=== PATIENT | female | born 1945 | race Caucasian/White ===

== ENCOUNTER 2023-08-09 11:33 | Emergency (ER) | payer MEDICARE, OTHER, SELFPAY ==
[2023-08-09 11:37] VITALS: BP 117/59
--- NOTE | 2023-08-09 12:13 | ED.GENMED ---
History of Present Illness
<Asiya Shea PA-C - Last Filed: 08/09/23 13:10>
General
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
Source: patient and records
Exam Limitations: none
Time Seen by Provider: 08/09/23 12:06
Nursing documentation reviewed up to this point in time: agreed with
Travel History
Have you had any contact with someone who has COVID-19?: No
Do you have any symptoms of coronavirus? Fever > 100 degrees, chills, cough, shortness of breath, sore throat, loss of taste or smell, muscle aches, or headache?: No
History of Present Illness
History of Present Illness:
78 y/o female with a PMH of afib, Alzheimer's dementia, hypertension is presenting emergency department today with concerns of a cyst in her groin. Patient is here in emergency department present with her reports that his daughter was
changing her depends diaper last night when she noticed that she had a cyst like mass on her groin. Has been unknown how long this has been here. Has been reports that daughter has stated that she has noticed her mom shimmy in her chair a lot but
never complained to her pain. Patient is extremely hard of hearing and is difficult to get history, but when asking about her cyst, she denies any pain, any knowledge of the mass. Patient Nuys any dysuria. Patient Nuys any abdominal pain.
denies any nausea or vomiting, fevers or chills.
Past History
<Asiya Shea PA-C - Last Filed: 08/09/23 13:10>
Past History
ED Past Medical History: HTN
ED Past Surgical History: None
Social History
Tobacco: Non-smoker
Alcohol: Occasional (Beer)
Personal:
Living: with family
Review of Systems
<Asiya Shea PA-C - Last Filed: 08/09/23 13:10>
Review of Systems
All Other Systems: ROS reviewed and negative except as documented in HPI and ROS
Phy Exam
<Asiya Shea PA-C - Last Filed: 08/09/23 13:10>
Physical Exam
Physical Exam:
Vitals: Patient's vital signs are stable
General: Patient is well-appearing and in no acute distress
Skin: Warm and dry, no rashes or lesions
Head: Normocephalic, atraumatic
Eyes: Sclera nonicteric
Cardiac: Regular rate
Pulm: Normal respiratory effort
Abdomen: No abdominal tenderness
Genitourinary: 2 small pustules seen on the pubic mound. Uterine prolapse seen at the vaginal introitus. No signs of infection.
Course
<Asiya Shea PA-C - Last Filed: 08/09/23 13:10>
Vital Signs
Initial and Last Documented VS:
Initial Vital Signs
Temp Pulse Resp BP Pulse Ox
97.3 F 92 20 117/59 96
08/09/23 11:37 08/09/23 11:37 08/09/23 11:37 08/09/23 11:37 08/09/23 11:37
Last Documented Vital Signs
Temp Pulse Resp BP Pulse Ox
97.3 F 92 20 117/59 96
08/09/23 11:37 08/09/23 11:37 08/09/23 11:37 08/09/23 11:37 08/09/23 11:37
<Pierce Dorantes DO - Last Filed: 08/09/23 12:46>
Vital Signs
Initial and Last Documented VS:
Initial Vital Signs
Temp Pulse Resp BP Pulse Ox
97.3 F 92 20 117/59 96
08/09/23 11:37 08/09/23 11:37 08/09/23 11:37 08/09/23 11:37 08/09/23 11:37
Last Documented Vital Signs
Temp Pulse Resp BP Pulse Ox
97.3 F 92 20 117/59 96
08/09/23 11:37 08/09/23 11:37 08/09/23 11:37 08/09/23 11:37 08/09/23 11:37
<Asiya Shea PA-C - Last Filed: 08/09/23 13:10>
MDM/Problems Addressed
Differential Diagnosis Includes:
Differentials include abscess, Bartholin's gland cyst, cystocele, rectocele, uterine prolapse
MDM/Problems Addressed:
Vaginal mass/cyst
Chronic conditions affecting care: Other (Alzheimer's, hearing loss, hypertension, A-fib)
Acute Exacerbation and/or Progression of Chronic Illness: Other (Alzheimer's dementia, hearing loss)
<Asiya Shea PA-C - Last Filed: 08/09/23 13:10>
*Pulse Oximetry
Patient hypoxic: no
*Critical Care Note
Total Time (30-74mins, 75-104mins- exclusive of procedures): Not Applicable
Data Reviewed
Review of Other/Old Records Reveals: Records (Reviewed previous records from ER physician documentation from 12/02/2022)
Source: patient and records
<BING Howard Last Filed: 08/09/23 13:10>
Patient Management
Escalation/DeEscalation of care consider admission/obs:
78 y/o female with a PMH of afib, Alzheimer's dementia, hypertension is presenting emergency department today with concerns of a cyst in her groin. Patient has severe dementia and extreme hearing loss, so history from her is limited, however she
does deny any vaginal pain, abdominal pain. Has been denies any nausea, vomiting, fevers. Her physical exam consistent with uterine prolapse. Uterine prolapse was reduced, patient medically stable for discharge. We will give patient number for
gynecologic follow-up.
ED Attending Note
<Asiya Shea PA-C - Last Filed: 08/09/23 13:10>
-
Portions of this chart may have been created with voice recognition software.� Occasional wrong word or��sound alike� substitutions may have occurred due to the inherent limitations of voice recognition software.
<Pierce Dorantes DO - Last Filed: 08/09/23 12:46>
ED Attending Note
Patient seen and examined by attending physician: Yes
I performed the substantive portion of visit, reviewed & personally made and approve the management plan that is documented in note by myself or ADDISON.: Yes
ED Attending Note:
I have reviewed Asiya's note and make the following notations.
78-year-old female brought to the emerged for evaluation of abnormal structure noted in the vaginal area.
Physical exam reveals a prolapsed uterus. Manually reduced. Recommend PCTS follow-up for potential pessary.
Discharge Plan
Departure
Patient Disposition: Home (Routine Discharge)
Date of Disposition: 08/09/23
Time of Disposition: 12:43
Patient with high blood pressure during this ER visit?: No
Condition: Good
Discharge Problem:
Uterine prolapse
Instructions: Pelvic organ prolapse, BLOOD PRESSURE
Referrals:
Christin Obrien DO [Active] - Call in 1-3 days for appt
Activity Restrictions/Additional Instructions:
Please call the attached [facility] [employer]'s number for an appointment for follow up. You may need pessary placement for this issue.
PLEASE RETURN TO THE EMERGENCY DEPARTMENT SHOULD YOU EXPERIENCE CHEST PAIN, SHORTNESS OF BREATH, ABDOMINAL PAIN, FEVERS OR CHILLS, BURNING WITH URINATION, OR OTHER CONCERNING SIGNS OR SYMPTOMS.
Interventions
Interventions:
*ED COVID-19 Vaccine History Last Done: 08/09/23 11:37
Discharge Date and Time
Print Language: ROMANIAN
[2023-08-09 13:28] VITALS: BP 129/74
== END 2023-08-09 13:34 | disposition home or self-care (01) ==
LOC: EMR 11:33
PROVIDERS: EMERGENCY PHYSICIAN Emergency Medicine
DX: N81.4 Uterovaginal prolapse, unspecified (principal); I10 Essential (primary) hypertension; I48.91 Unspecified atrial fibrillation; F02.80 Dementia in other diseases classified elsewhere, unspecified severity, without behavioral disturbance, psychotic disturbance, mood disturbance, and anxiety; G30.9 Alzheimer's disease, unspecified
CPT/HCPCS: 99282

== ENCOUNTER → 2023-10-06 08:00 | Outpatient (REF) | payer MEDICARE, OTHER, SELFPAY ==
[2023-10-06 08:43] LABS: Hematocrit 37.4 % (37.0-47.0); Mean Corp Hgb Conc. 34.8 g/dL (33.0-37.0); Mean Corpuscular Hgb 29.3 pg (27.0-31.0); Mean Corpuscular Volume 84.2 fL (81.0-99.0); Mean Platelet Volume 8.8 fL (7.4-10.4); Platelet Count 421 10^3/uL (130-400); Red Blood Cell Count 4.44 10^6/uL (4.20-5.40); Red Cell Dist. Width 14.2 % (11.5-14.5); White Blood Cell Count 8.3 10^3/uL (4.8-10.8)
[2023-10-06 09:52] VITALS: BMI 25.7
[2023-10-06 09:53] LABS: Blood Urea Nitrogen 15 mg/dl (7-17); Calcium 9.6 mg/dl (8.4-10.2); Carbon Dioxide 24 mmol/L (22-30); Chloride 99 mmol/L (98-107); Glucose 93 mg/dl (70-99); Potassium 4.7 mmol/L (3.5-5.1); Sodium 132 mmol/L (135-145); eGFR > 60.00
== END ==
LOC: SDSPAT 08:00
PROVIDERS: ATTENDING PHYSICIAN Obstetrics & Gynecology
DX: Z01.818 Encounter for other preprocedural examination (principal)
CPT/HCPCS: 36415; 80048; 85027; 86850; 86900; 86901; 93005

== ENCOUNTER 2023-10-16 06:22 | Day surgery (SDC) | payer MEDICARE, OTHER, SELFPAY ==
[2023-10-06 14:25] VITALS: BMI 25.7
--- NOTE | 2023-10-12 09:18 | CM ---
Patient is scheduled for surgery with Dr. Pinon on 10/16/23. Spoke with patient's prior to surgery via telephone to complete case management assessment and assess for discharge planning needs. He reports that he and patient live in a one
story home. There are two steps to enter. states that patient has dementia. He provides assistance with showers and occasionally with dressing. She is able to ambulate and occasionally uses a rollator. She is incontinent at night. She has
never had VN services. She was in [facility] for almost a year while was in the process of moving. Their daughter, son-in-law and grandchildren live down the street and come over daily. She has a prescription plan and uses [facility] on [facility] in [place].
PCP is Emilee Franco.
Discussed discharge plans. states that the plan is for patient to return home at discharge. He will be home and can continue to provide support to patient along with his daughter and her family. He has no discharge planning concerns at this
time. Discussed possible need for VN services. He states that patient doesn't do well with people she doesn't know so he does not feel that these services would be beneficial.
--- NOTE | 2023-10-12 12:36 | PTCARENOTE ---
Abn ECG, Dr. Medrano notified, Cardiac Clearance not needed.
[2023-10-16] VITALS (12 sets, daily range): BP systolic 90–114; BP diastolic 58–84; BMI 25.7
[2023-10-16] MEDS: NORMOSOL-R 1000 IV (08:34)
[2023-10-16] MEDS: Pyridium 200 MG PO (08:34)
== END 2023-10-16 16:45 | disposition home or self-care (01) ==
LOC: SDS 06:22
PROVIDERS: ATTENDING PHYSICIAN Obstetrics & Gynecology
DX: N81.3 Complete uterovaginal prolapse (principal); N39.3 Stress incontinence (female) (male)
CPT/HCPCS: 57120; 57250; 86900; 86901

== ENCOUNTER 2025-03-09 18:28 | Inpatient (IN) | payer MEDICARE, OTHER, SELFPAY ==
[2025-03-09] VITALS (7 sets, daily range): BP systolic 93–111; BP diastolic 50–90; BMI 22.3
[2025-03-09 14:36] LABS: AST (SGOT) 184 U/L (14-36); Albumin 3.8 g/dl (3.5-5.0); Alkaline Phosphatase 77 U/L (38-126); Blood Urea Nitrogen 47 mg/dl (7-17); Calcium 8.5 mg/dl (8.4-10.2); Carbon Dioxide 22 mmol/L (22-30); Chloride 92 mmol/L (98-107); Glucose 169 mg/dl (70-99); Potassium 4.5 mmol/L (3.5-5.1); Sodium 127 mmol/L (135-145); Total Protein 6.8 g/dl (6.3-8.2); eGFR 30.70
[2025-03-09 14:37] LABS: Hematocrit 37.2 % (37.0-47.0); Hemoglobin 13.2 g/dL (12.0-16.0); Mean Corp Hgb Conc. 35.5 g/dL (33.0-37.0); Mean Corpuscular Volume 87.3 fL (81.0-99.0); Platelet Count 316 10^3/uL (130-400); Red Cell Dist. Width 13.4 % (11.5-14.5)
[2025-03-09 14:45] LABS: ALT (SGPT) 93 U/L (0-35)
[2025-03-09 14:50] LABS: Nucleated Red Blood Cells % 0 %
[2025-03-09 14:51] LABS: Hypochromasia 1+; Normal RBC Morphology No; Polychromasia 1+
[2025-03-09 14:52] LABS: Acanthocytes 2+
--- NOTE | 2025-03-09 14:57 | ED.GENMED ---
History of Present Illness
General
Chief Complaint: Change in Mental Status
Source: patient and family
Exam Limitations: altered mental status and dementia
Time Seen by Provider: 03/09/25 14:07
History of Present Illness
History of Present Illness:
79-year-old female advanced dementia subacute decline in function over the past few days not eating or drinking looking to the side question of fever, patient apparently does not have an advance directive family is not sure what they would want to
do at the end stage of her life, nor have they ever discussed
Patient has hypertension A-fib currently not anticoagulated
Past History
Past History
ED Past Medical History: HTN and Other (Dementia)
ED Past Surgical History: None
Social History
Tobacco: Non-smoker
Alcohol: Occasional (Beer)
Personal:
Living: with family
Review of Systems
Review of Systems
Unable to obtain full review of systems at this time due to: dementia
All Other Systems: Not applicable
Phy Exam
Physical Exam
Physical Exam:
Physical Exam
General: 79 female obtunded looking to the side strong smell of urine
Neck: Lips are dry pupils millimeters OU
Heart: s1/s2 regular rate and rhythm, no murmur. equal radial pulses.
Lungs: Tachycardia
Abdomen: Not
Neuro: Localizes to painful stim
Skin: no rash
Psychiatric: Unable to
Extremities: No edema
Course
Orders/Labs/Results
Orders:
Orders
03/09/25 14:12
CT Head W/o Iv Contrast Urgent
Comment:
Reason For Exam: decrease LOC
03/09/25 14:13
Complete Blood Count/With Diff Urgent
Comprehensive Metabolic Panel Urgent
03/09/25 14:28
Rectal Temp- Treatment ONCE
03/09/25 14:29
Electrocardiogram (*1) Urgent
Reason for Study: Shortness of Breath
EKG- Treatment ONCE
Straight cath- Treatment ONCE
CR Chest Portable - 1 View Urgent
Comment:
Reason For Exam: coma
Reason Study Needs to be Portable: Unable to Transport
03/09/25 15:03
0.9% Sodium Chloride 1000 ml [Nss] 2,000 ml IV BOLUS
CefTRIAXone [Rocephin] 1,000 mg IV NOW STA
03/09/25 16:08
Sterile Water [Sterile Water For Injection] 10 ml .ROUTE .[facility]
03/09/25 16:14
Urinalysis Reflex To Culture Urgent
Date Specimen was Collected: 03/09/25
Time Specimen was Collected: 15:05
Urine Microscopic Reflex Cult Urgent
Blood Culture Q30M
JOSIE Source: Blood/Venous
Specimen Description:
Blood Culture Q30M
JOSIE Source: Blood/Venous
Specimen Description:
Urine Culture Urgent
JOSIE Source: U
Specimen Description:
Obtained by: Random
Date Specimen was Collected: 03/09/25
Time Specimen was Collected: 15:05
03/09/25 17:22
COVID-19 Antigen Stat
Source: Nasal Swab
Lactate Level [Lactic Acid] Urgent
Influenza A+B Rapid Molecular Stat
JOSIE Source: Nasal Swab
Specimen Description:
Abnormal Lab Results
03/09/25 03/09/25
14:13 16:14
WBC 25.4 H 10^3/uL
(4.8-10.8)
Abs Immat Gran (auto) 0.4 H 10^3/uL
(0-0.05)
Absolute Neuts (auto) 21.8 H 10^3/uL
(1.4-6.5)
Absolute Monos (auto) 1.7 H 10^3/uL
(0.1-0.6)
Immature Gran % 1.5 H %
(0-0.5)
Neutrophils % 85.8 H %
(42.2-75.2)
Lymphocytes % 5.6 L %
(20.5-51.1)
Sodium 127 L mmol/L
(135-145)
Chloride 92 L mmol/L
(98-107)
BUN 47 H mg/dl
(7-17)
Creatinine 1.7 H mg/dL
(0.6-1.0)
Glucose 169 H mg/dl
(70-99)
Total Bilirubin 1.6 H mg/dl
(0.2-1.3)
AST 184 H U/L
(14-36)
ALT 93 H U/L
(0-35)
Ur Occult Blood Reflex 4+ A
(Negative)
Leukocyte Esterase Rfl 1+ A
(Negative)
Urine Bacteria (Reflex) Moderate A
(Negative)
Urine Albumin (Reflex) 3+ A
(Neg - Trace)
03/09/25 14:13
03/09/25 14:13
Vital Signs
Initial and Last Documented VS:
Initial Vital Signs
Pulse Resp BP
42 16 111/83
03/09/25 13:51 03/09/25 13:51 03/09/25 13:51
Last Documented Vital Signs
Temp Pulse Resp BP Pulse Ox
99.1 F 88 19 100/56 97
03/09/25 16:10 03/09/25 16:31 03/09/25 16:03 03/09/25 16:03 03/09/25 16:31
MDM/Problems Addressed
Differential Diagnosis Includes:
Stroke UTI sepsis electrolyte abnormality aspiration
*Pulse Oximetry
Oxygen Mode of Delivery: Room air
Patient hypoxic: no
*Critical Care Note
Total Time (30-74mins, 75-104mins- exclusive of procedures): 14
ED Attending Note
-
Portions of this chart may have been created with voice recognition software.� Occasional wrong word or��sound alike� substitutions may have occurred due to the inherent limitations of voice recognition software.
Discharge Plan
Departure
Patient Disposition: Admit
Date of Disposition: 03/09/25
Time of Disposition: 16:30
Admit to: Med/Surg
Presentation/result/management discussed w/ accepting MD/DO: Hospitalist
Patient with high blood pressure during this ER visit?: No
Condition: Fair
Discharge Problem:
Delirium
Prescriptions:
No Action
risperidone 0.25 mg Tablet
0.25 mg PO BID
amlodipine 10 mg Tablet
10 mg PO DAILY
metoprolol succinate 25 mg Tablet Extended Release 24 Hr
25 mg PO DAILY
losartan 100 mg Tablet
100 mg PO DAILY
Referrals:
Emilee Arias DO [Family Provider, Internal Medicine]
Interventions
Interventions:
*Risk Screen - Suicide Last Done: 03/09/25 13:57
*Neglect/Abuse Screening Last Done: 03/09/25 13:57
ED- Pulmonary Assessment Last Done: 03/09/25 16:40
ED- Neurological Assessment Last Done: 03/09/25 14:25
ED- Cardiac Assessment Last Done: 03/09/25 16:40
ED Swallowing Screen Last Done: 03/09/25 16:41
Discharge Date and Time
Print Language: PUERTO RICAN
[2025-03-09] MEDS: NSS 2000 IV (16:09)
[2025-03-09] MEDS: ROCEPHIN 1000 MG IV (16:10)
--- NOTE | 2025-03-09 16:24 | HPS.HSE ---
Addendum entered and electronically signed by Peter Del Valle MD 03/09/25 19:57:
This is an addendum to the H&P written by Kiko Duggan on 03/09/2025. �Patient seen and examined independently with resident.
79-year-old female past medical history of hypertension, paroxysmal atrial fibrillation, Alzheimer's dementia, chronic urinary incontinence presenting with altered mental status, somnolence for few days and gait dysfunction for past week. �She has
been more congested with her breathing. �No urinary symptoms that are new. �No vomiting or diarrhea. �No cough.
Vital signs show mild tachycardia up to 109. �Patient requiring 2 L oxygen.
Labs shows sodium 127 from 132. �Creatinine 1.7. �Mild transaminitis. �White cell count 25. �Urinalysis unremarkable.
Chest x-ray shows no acute process. �CT head shows no acute abnormality, prominence of ventricles, possible indicating NPH.
Patient with acute metabolic encephalopathy/acute hypoxemic respiratory insufficiency possible URI versus UTI versus rule out acute cholecystitis. �SHASHANK. �Check COVID and flu. �Urine culture pending. �IV fluids. �Empiric ceftriaxone. �Check liver
ultrasound.
Original Note:
Family Physician
-
Family Physician: Emilee Arias
Chief Complaint
-
Altered mental status
History of Present Illness
79-year-old female with history of Alzheimer's dementia, hypertension, A-fib brought to the ER by her spouse for evaluation of altered mental status. reports that appeared weak from the past 1 week, was not able to use her walker and he got
her a wheelchair 3 days ago. Patient was so weak that she slid off her couch getting up to the walker, and hit her head. She has not been eating well for the past 3 days, no not adequately hydrated as well. She also appeared a little bit more
confused than before. No fever/chills, cough, chest pain, SOB, abdominal pain, diarrhea, hematuria. Patient was not sick in the recent past.
ED course-pulse 109, BP 111/83, RR 16. Afebrile.
CBC with elevated white count 25.4, sodium 127, BUNs/creatinine�47/1.7, glucose 169, T. bili�1.6, AST/ALT�180/93
Urinalysis with evidence of UTI
CT head�no acute intracranial abnormalities. Questionable NPH.
Chest x-ray�no evidence of pneumonia.
EKG with A-fib
Medical History
Past Medical History
Past Medical History: Reports Other (Hypertension, atrial fibrillation, Alzheimer's dementia)
Past Surgical History: Reports Gynocological
Social History
Tobacco: Non-smoker
Alcohol: None
Drug: None
Personal:
Living: With Family
Family History
Family History: Not pertinent
Allergies / Home Medications
Allergies reflects when Allergies were last updated in [employer].
Home Medications with original date entered in [employer]
Allergy/Medication List:
Allergies
Allergy/AdvReac Type Severity Reaction Status Date / Time
hydrochlorothiazide Allergy Unknown Verified 10/16/23 08:03
lisinopril AdvReac COUGH Verified 10/16/23 08:03
Home Medications
amlodipine 10 mg tablet 10 mg PO DAILY 10/11/23
losartan 100 mg tablet 100 mg PO DAILY 10/11/23
metoprolol succinate 25 mg tablet,extended release 24 hr 25 mg PO DAILY 10/11/23
risperidone 0.25 mg tablet 0.25 mg PO BID 10/11/23
Review of Systems
-
A 12 point ROS was completed and negative except as noted: Yes
Physical Exam
Vital Signs
Vital Signs
Temp Pulse Resp BP
99.1 F 109 30 111/83
03/09/25 16:10 03/09/25 14:06 03/09/25 14:06 03/09/25 13:51
Physical Exam
General: Appears Chronically Ill; No Conversant
HEENT: NormoCephalic and Atraumatic
Respiratory: Clear
Cardiac: S1/S2 and Irregular Rhythm
GI: Soft, Non Tender, Non Distended and Normal Bowel Sounds
Skin: Warm and Dry
Neuro: Awake and Alert; No Oriented or AO x 3
Psych: Apparent Dementia
Laboratory Results
-
03/09/25 14:13
03/09/25 14:13
Laboratory Results
Total Bilirubin 1.6 mg/dl (0.2-1.3) H 03/09/25 14:13
AST 184 U/L (14-36) H 03/09/25 14:13
ALT 93 U/L (0-35) H 03/09/25 14:13
Alkaline Phosphatase 77 U/L (38-126) 03/09/25 14:13
Impression/Plan
-
IMPRESSION:
79-year-old female with history of Alzheimer's dementia, hypertension, atrial fibrillation presenting for evaluation of altered mental status
PLAN:
#Acute metabolic encephalopathy
Likely from UTI versus URI versus electrolyte imbalance
Elevated white count 25.4, patient afebrile.
Will check COVID/flu
Patient on 2 L nasal cannula, chest x-ray with no evidence of pneumonia
Check ultrasound abdomen
Will start Rocephin
Follow urine culture
Follow blood cultures
Check lactate
#SHASHANK
Likely prerenal from dehydration
No prior history of CKD
IV fluids
Monitor BMP
#Transaminitis
AST/ALT�184/93
Will check ultrasound abdomen to rule out cholecystitis
Otherwise likely due to dehydration
Monitor LFTs
#Essential hypertension
Blood pressure very soft
Hold amlodipine, losartan
#Atrial fibrillation
Patient not on anticoagulants
Continue metoprolol, hold for low blood pressure
#Alzheimer's dementia
Continue risperidone
DVT prophylaxis�heparin subcu
Diet�low-sodium
Full code
[2025-03-09 16:25] LABS: Urine Character Slightly Cloudy (Clear)
[2025-03-09 16:31] LABS: Urine Red Blood Cell 0-2 /HPF (0-2)
[2025-03-09 19:41] LABS: COVID-19 Antigen Negative (Negative)
[2025-03-09] MEDS: NSS 1000 IV (20:31)
[2025-03-10] MEDS: RISPERDAL PO ×3 (00:08→07:11)
[2025-03-10] MEDS: HEPARIN 5000 UNITS SC ×4 (00:32→23:37)
[2025-03-10 03:07] VITALS: BP 105/50
[2025-03-10] MEDS: NSS 1000 IV ×3 (04:20→21:25)
[2025-03-10 06:57] LABS: Hematocrit 29.5 % (37.0-47.0); Hemoglobin 10.0 g/dL (12.0-16.0); Mean Corp Hgb Conc. 33.9 g/dL (33.0-37.0); Mean Corpuscular Volume 92.2 fL (81.0-99.0); Nucleated Red Blood Cells % 0 %; Platelet Count 254 10^3/uL (130-400); Red Cell Dist. Width 13.2 % (11.5-14.5)
[2025-03-10 07:15] VITALS: BP 115/82
[2025-03-10 07:33] LABS: ALT (SGPT) 73 U/L (0-35); AST (SGOT) 105 U/L (14-36); Albumin 2.7 g/dl (3.5-5.0); Alkaline Phosphatase 64 U/L (38-126); Blood Urea Nitrogen 41 mg/dl (7-17); Calcium 7.6 mg/dl (8.4-10.2); Carbon Dioxide 23 mmol/L (22-30); Chloride 104 mmol/L (98-107); Estimated Creatinine Clearance 41 ml/min; Glucose 77 mg/dl (70-99); Potassium 3.3 mmol/L (3.5-5.1); Sodium 130 mmol/L (135-145); Total Protein 5.3 g/dl (6.3-8.2); eGFR 58.02
--- NOTE | 2025-03-10 09:08 | W.PN.HOSP.TC ---
Addendum entered and electronically signed by Elisha Gunter MD 03/10/25 17:47:
I saw and evaluated the patient independently. I reviewed and discussed the resident�s note and agree with findings and plan as documented by Dr. Reddy.
GENERAL: well developed, well nourished, female in no apparent distress--significant dementia
HEENT: NC/AT--O2 NC
HEART: regular rate and rhythm, +S1, +S2
LUNGS : clear to auscultation bilaterally anteriorly
ABDOM: soft, nontender, nondistended, + bowel sounds
EXT: no cyanosis, clubbing, or edema
NEUROLOGIC: dementia
Altered mental status presumed secondary to urinary tract infection on Alzheimer's dementia--blood culture neg--urine culture pending--cont rocephin for now--WBC improving--PT/OT/speech--IVF and IV meds if not taking PO
hyponatremia/hypokalemia --replete
SHASHANK likely prerenal from dehydration-- improved from 1.7 to 1.0
Transaminitis--03/09-AST 105 high ALT 73 high, total protein low 5.3, albumin 2.7 low--US shows Simple left renal cyst. Gallbladder not visualized most likely, either markedly contracted or surgically absent. No findings to suggest biliary tract
dilatation.
Persistent A-fib--Currently heparin subcutaneous yesterday administered but not on anticoagulants--presumably due to dementia and fall risk? --Continue Lopressor IV 5 mg 6 hourly, stop if HR is less than 70.
Alzheimer's dementia continue risperidone
code status--Full code
DVT proph-- heparin SC
Original Note:
Today's Communication/Plan
-
Switched metoprolol to IV Lopressor
Continue ceftriaxone
Check potassium
Risperidone 0.25 mg continue
Check lactate level
Speech therapy consulted
Monitor vitals
Assessment / Plan
Assessment / Plan
79-year-old female with a history of Alzheimer's dementia on risperidone, hypertension, A-fib on no anticoagulants, hypertension presented with dementia
# Altered mental status secondary to urinary tract infection/ Alzheimer's dementia:
vitals: 105/50--115/82, LA 120, RR 18, blood pressure 115/ 82, currently receiving 2 L of oxygen nasal cannula.
WBC 25.4--15.6 downtrending, Hb 13.2--10.0,
Sodium 130 low, potassium 3.3, 40 mEq potassium chloride per oral placed an order however the patient is not willing to take any oral medications so switched to potassium riders.
bun 41 high, creatinine 1.7--1 (improving may be due to dehydration currently on IV NS 1 L 120 mL/h fluids )
Urine culture, blood culture results are pending, flu test negative, lactate check ,, A-fib
EKG: A-fib, heart rate 97 bpm, QT 462,
Check orthostatic vitals,
Continue ceftriaxone once a day
Continue i v NS fluids
hold oral medications.
iv lopressor 5 mg q6-- hr less than 70,
Replenished Kcl rider 40 mEq iv.
# SHASHANK likely prerenal from dehydration.
# Transaminitis:
03/09-AST 105 high ALT 73 high, total protein low 5.3, albumin 2.7 low
Ultrasound abdomen:
Simple left renal cyst. Gallbladder not visualized most likely, either markedly contracted or surgically absent. No findings to suggest biliary tract dilatation.
Additional small complex left renal cysts with at least some internal septations, indeterminate. Suggest elective Abdomen CT without and with intravenous contrast for more complete evaluation.
# Persistent A-fib:
Currently heparin subcutaneous yesterday administered but not on anticoagulants.
Continue Lopressor IV 5 mg 6 hourly, stop if HR is less than 70.
# Alzheimer's dementia continue risperidone
# st/pt/ot consulted
Diet low-sodium as tolerated
Full code
DVT prophylaxis heparin subcu
Anticipated Discharge: > 48 hours
Subjective/Interval History
-
Date of Service: March 10, 2025
Overnight patient had urinary incontinent at bed, she was refusing to eat today breakfast spitting it out, normal saline currently she is receiving.
When I was at rounds with Dr. Gunter: Discussed with her who is at the bedside. He mentioned' she was eating by herself at home. According to him today she had milk at morning, but she has chronic speech problem. Her dementia has
worsening.' Discussed regards her disposition and he would like to take her to home with home care.
Objective Data
-
Labs:
Laboratory Results
03/10/25
05:53
WBC 15.6 H
Hgb 10.0 L D
Hct 29.5 L
Plt Count 254
Sodium 130 L
Potassium 3.3 L D
Chloride 104
Carbon Dioxide 23
BUN 41 H
Creatinine 1.0
Glucose 77
Calcium 7.6 L
Total Bilirubin 0.8
AST 105 H
ALT 73 H
Alkaline Phosphatase 64
Vital Signs:
Vital Signs
Temp Pulse Resp BP Pulse Ox
98.3 F 120 18 115/82 92
03/10/25 07:15 03/10/25 07:15 03/10/25 07:15 03/10/25 07:15 03/10/25 07:15
I&O
03/09/25 03/10/25 03/11/25
06:59 06:59 06:59
Intake Total 2400 / 2400
Balance 2400 / 2400
Review of Systems
-
History Source: Patient
All other systems: Reviewed and negative
Physical Exam
-
General: Well Developed and Well Nourished
Respiratory: Clear to Auscultation
Cardiac: Regular Rhythm and S1/S2
GI: Soft, Nontender and Nondistended
Genito-urinary: No Costovertebral Tender
Musculoskeletal: No Edema
Skin: Other (Bruises present at left foot.)
Neuro: Awake and Other (Not oriented to time, place, person)
Hematologic / Lymphatic: No Lymphadenopathy
Psych: Confused
[2025-03-10 11:25] VITALS: BP 91/57
[2025-03-10] MEDS: STERILE WATER FOR INJECTION 10 ML IV (12:21)
[2025-03-10] MEDS: KCL 270 MEQ IV (12:23)
[2025-03-10] MEDS: ROCEPHIN 1000 MG IV (12:23)
[2025-03-10] MEDS: RISPERDAL 0.25 MG PO ×2 (12:53→20:23)
--- NOTE | 2025-03-10 14:09 | CM ---
Patient seen at bedside with patient and physicians on . Patient stated that he was primary caregiver for for last 2 years. Patient has walker, wheelchair and chair lift at home. Patient home is one story.
[2025-03-10 15:35] VITALS: BP 98/66
--- NOTE | 2025-03-10 16:31 | PTOTSP ---
Speech Therapy Evaluation:
Pt with acute (HIEN) and chronic (Alzheimers Dementia) risk factors of dysphagia. Bedside assessment limited 2/2 nonfunctional communication and no command following. Pt accepted sparing PO trials with max verbal cueing. No overt s/sx of aspiration
and CXR without PNA. Risk of aspiration elevated during periods of confusion.
Recommend:
1. Regular solids and thin liquids with softer selections
2. Meds crushed vs whole in puree
3. 1:1 assistance and supervision with intake
4. Strict aspiration precaution
5. OUTSIDE [employer] SALES [employer]IST to follow to monitor tolerance of diet
[2025-03-10] MEDS: LOPRESSOR IV (17:18)
[2025-03-10] MEDS: LOPRESSOR 5 MG IV ×2 (17:45→23:37)
[2025-03-10] MEDS: NSS IV ×2 (19:03→20:21)
[2025-03-10 19:37] VITALS: BP 119/71
[2025-03-10 23:30] VITALS: BP 123/64
[2025-03-11] MEDS: TYLENOL 650 MG PO (03:04)
[2025-03-11] MEDS: RISPERDAL 0.25 MG PO ×2 (03:05→09:17)
[2025-03-11 03:06] VITALS: BP 112/56
[2025-03-11] MEDS: LOPRESSOR 5 MG IV ×2 (06:22→12:23)
[2025-03-11] MEDS: NSS 1000 IV (06:26)
--- NOTE | 2025-03-11 06:39 | W.PN.HOSP.TC ---
Addendum entered and electronically signed by Elisha Gunter MD 03/11/25 15:51:
I saw and evaluated the patient independently. I reviewed and discussed the resident�s note and agree with findings and plan as documented by Dr. Reddy.
GENERAL: well developed, well nourished, female in no apparent distress--significant dementia
HEENT: NC/AT--off O2 NC
HEART: regular rate and rhythm, +S1, +S2
LUNGS : clear to auscultation bilaterally anteriorly
ABDOM: soft, nontender, nondistended, + bowel sounds
EXT: no cyanosis, clubbing, or edema
NEUROLOGIC: dementia
sepsis with Altered mental status (encephalopathy) due to E. coli urinary tract infection with Alzheimer's dementia--blood culture neg--urine culture positive for E. coli--change rocephin to Cephalexin suspension--WBC improving--PT/OT/speech
hyponatremia/hypokalemia --replete
SHASHANK likely prerenal from dehydration-- improved from 1.7 to 1.0
Transaminitis--03/09-AST 105 high ALT 73 high, total protein low 5.3, albumin 2.7 low--US shows Simple left renal cyst. Gallbladder not visualized most likely, either markedly contracted or surgically absent. No findings to suggest biliary tract
dilatation.
Persistent A-fib--Currently heparin subcutaneous yesterday administered but not on anticoagulants--presumably due to dementia and fall risk? --Continue Lopressor IV 5 mg 6 hourly, stop if HR is less than 70.
Alzheimer's dementia continue risperidone
code status--Full code
DVT proph-- heparin SC
Original Note:
Today's Communication/Plan
-
Afebrile,
Switch to Keflex oral suspension
Discharge today
Will call the patient with urine culture and sensitivity results.
Follow-up with PCP within few weeks of discharge.
Assessment / Plan
Assessment / Plan
79-year-old female with a history of Alzheimer's dementia on risperidone, hypertension, A-fib on no anticoagulants, hypertension presented with dementia
# Altered mental status secondary to urinary tract infection/ Alzheimer's dementia:
vitals: 105/50--115/82, AR 120, RR 18, blood pressure 115/ 82, currently receiving 2 L of oxygen nasal cannula.
Labs: Sodium 130--129, potassium 3.3--3.6, bun 41--25, lactic acid 3.8--0.9,
WBC 15.6--14.5
Hemoglobin 10.0--9.9
COVID, flu test negative
Urine culture= E. coli prelim report.
bun 41 high, creatinine 1.7--1 (improving may be due to dehydration currently on IV NS 1 L 120 mL/h fluids )
Urine culture, blood culture results are pending, flu test negative, lactate check ,, A-fib
EKG: A-fib, heart rate 97 bpm, QT 462,
Check orthostatic vitals,
Switching IV ceftriaxone to oral Keflex- 500 mg in 10 mL suspension twice daily while on discharge today.
Continue oral medications if she tolerates.
Switching iv lopressor 5 mg q6-- hr less than 70 to metoprolol while on discharge.
Switching all her medications to oral.
# SHASHANK likely prerenal from dehydration.
# Transaminitis:
03/09-AST 105 high ALT 73 high, total protein low 5.3, albumin 2.7 low
Ultrasound abdomen:
Simple left renal cyst. Gallbladder not visualized most likely, either markedly contracted or surgically absent. No findings to suggest biliary tract dilatation.
Additional small complex left renal cysts with at least some internal septations, indeterminate. Suggest elective Abdomen CT without and with intravenous contrast for more complete evaluation.
# Persistent A-fib:
Currently heparin subcutaneous yesterday administered but not on anticoagulants.
Continue Lopressor IV 5 mg 6 hourly, stop if HR is less than 70.
# Alzheimer's dementia continue risperidone
# st/pt/ot consulted
Diet low-sodium as tolerated
Full code
DVT prophylaxis heparin subcu
Disposition: Home along with .
# at the bedside explained in details regards to her complicated UTI, and explained regards to complete antibiotic course. He is willing to take her to the home.
Anticipated Discharge: Today
Subjective/Interval History
-
Date of Service: March 11, 2025
History obtained from the night nurse:
Overnight had temp 100.8 F--97.5 around midnight and Tylenol administered. She had 1 incontinence, risperidone she refused to take. She had applesauce for dinner. Currently she is on 2L of oxygen nasal cannula.
She is having had left-sided hip bruises, chronic speech problem.
Objective Data
-
Labs:
Laboratory Results
03/11/25
06:00
WBC Pending
Hgb Pending
Hct Pending
Plt Count Pending
Sodium Pending
Potassium Pending
Chloride Pending
Carbon Dioxide Pending
BUN Pending
Creatinine Pending
Glucose Pending
Calcium Pending
Total Bilirubin Pending
AST Pending
ALT Pending
Alkaline Phosphatase Pending
Vital Signs:
Vital Signs
Temp Pulse Resp BP Pulse Ox
99.2 F 115 18 117/93 99
03/11/25 06:26 03/11/25 06:22 03/11/25 03:06 03/11/25 06:22 03/11/25 03:06
I&O
03/09/25 03/10/25 03/11/25
06:59 06:59 06:59
Intake Total 2400 / 2400 1200 / 1200
Balance 2400 / 2400 1200 / 1200
Review of Systems
-
History Source: Patient
All other systems: Reviewed and negative
Physical Exam
-
General: Appears in Distress and Other (Dysarthria)
HEENT: Other
Respiratory: Clear to Auscultation
Cardiac: Regular Rhythm and S1/S2
GI: Soft, Nontender and Nondistended
Genito-urinary: No Costovertebral Tender
Musculoskeletal: No Clubbing and No Cyanosis
Neuro: Awake and Other (Not oriented to time, place, person)
Psych: Confused
[2025-03-11 07:35] LABS: Hematocrit 29.8 % (37.0-47.0); Hemoglobin 9.9 g/dL (12.0-16.0); Mean Corp Hgb Conc. 33.2 g/dL (33.0-37.0); Mean Corpuscular Volume 90.6 fL (81.0-99.0); Platelet Count 259 10^3/uL (130-400); Red Cell Dist. Width 13.4 % (11.5-14.5)
[2025-03-11 07:37] VITALS: BP 94/54
[2025-03-11 08:12] LABS: ALT (SGPT) 68 U/L (0-35); AST (SGOT) 67 U/L (14-36); Albumin 2.7 g/dl (3.5-5.0); Alkaline Phosphatase 63 U/L (38-126); Blood Urea Nitrogen 25 mg/dl (7-17); Calcium 7.6 mg/dl (8.4-10.2); Carbon Dioxide 21 mmol/L (22-30); Chloride 105 mmol/L (98-107); Estimated Creatinine Clearance 58 ml/min; Glucose 95 mg/dl (70-99); Potassium 3.6 mmol/L (3.5-5.1); Sodium 129 mmol/L (135-145); Total Protein 5.3 g/dl (6.3-8.2); eGFR > 60.00
[2025-03-11] MEDS: HEPARIN 5000 UNITS SC ×2 (09:16→15:17)
[2025-03-11 11:19] VITALS: BP 134/71
[2025-03-11] MEDS: STERILE WATER FOR INJECTION 10 ML IV (12:23)
[2025-03-11] MEDS: ROCEPHIN 1000 MG IV (12:23)
--- NOTE | 2025-03-11 14:30 | CM ---
Patient seen at bedside on with physicians. Patient indicated that he wanted to take patient home and declined ambulance for transport. Patient indicated following his research that [facility] had recommended [facility] and CM updated
liaison. IMM completed and signed form placed on chart. CM will continue to follow for discharge planning needs.
Plan; home with [facility] to follow
--- NOTE | 2025-03-11 14:31 | VNURNOTE ---
Home Health Liaison met with patient and spouse at bedside to discuss [facility] nurse/therapy, visits, schedule and homebound status. Patient confused/dementia. Spouse is agreeable and understands that visits at home will be 2-3 x per week to assess
and teach medical management. Spouse is aware that [facility] will contact them for start of care within a week after discharge from . Provided contact number for [facility]. Sent spouse info on visiting PCPs per his request.
[facility] referral completed in [facility].
[2025-03-11 15:12] VITALS: BP 105/65
[2025-03-11] MEDS: FLUZONE HIGH-DOSE 2025-26 0.5 ML IM (15:18)
--- NOTE | 2025-03-11 18:30 | W.DCSUMMARY ---
Addendum entered and electronically signed by Elisha Gunter MD 03/11/25 19:01:
Read, reviewed, and agree. See same day progress note for additional details. Time spent coordinating care, DC planning, review of DC plan of care with resident, transition of care, review of records in EMR, med rec, consults, notes, d/w
consultants, nursing, family, and CM = 45 minutes.
CLARIFICATION: Discharge diagnosis is actually sepsis with altered mental status (encephalopathy) due to Escherichia coli urinary tract infection with Alzheimer's dementia. After mutual discussion with the patient's , it was felt that the
patient would do better at home rather than stay another night in the hospital. She does much better when he is here with her, including taking her pills and less agitation. The sensitivities are not back yet on the E. coli urine culture, however,
if the antibiotic needs to be changed we will call the patient's and provide a new prescription.
Original Note:
Discharge Summary
Discharge Data
Date of Admission: 03/09/25
Date of Discharge: 03/11/25
Total time spent discharging patient (in min): 45 minutes
-
Pending Results: Yes
Additional Pending Results:
Urine analysis test sensitive results are pending.
Will call the patient once we receive.
Hospital Course
Discharging Physician : Dr. Gunter, Elisha Verdugo MD
Magda Vidal MD
Disposition : Home
Primary care physician : Emilee Rendon,
Principal Discharge diagnosis : Altered mental status due to E. coli urinary tract infection.
Chronic Discharge diagnosis :
# Hyponatremia/hypokalemia--repleted with NaCl NS, KCl repletion.
# SHASHANK likely prerenal from dehydration--improved from 1.7--1.0
# Transaminitis 03/09--AST 105 high, ALT 73 high, total protein low 5.3, albumin 2.7 low--USG showed simple left renal cyst.
# Persistent A-fib: Heparin subcutaneous administered at the time of admission and continued till the hospitalization. However the patient not on anticoagulants while on [id number] presumably due to dementia and fall risk.
# Alzheimer's dementia-continue risperidone.
Hospital Course :
On 02/1670 9-year-old female with history of Alzheimer's dementia, hypertension, A-fib brought to the ER by her spouse for evaluation of altered mental status. reported that she appeared weak from the past 1 week, was not able to use her
walker and he got her ABG 3 days ago. Patient was weak that she slid off her couch and getting up to the walker and hit her head. No concern for fever/chills, cough, chest pain, shortness of breath, abdominal pain, diarrhea, hematuria. Patient
was not sick in the past. Initial workup with WBC 25.4 high, lactate 3.8 high, afebrile, including CT brain showed no acute intracranial abnormalities. Patient was started on [id number] mg IV daily. ST, PT, OT evaluated. Speech evaluation
mentioned she can tolerate liquid as well as soft food diet. While on the course of hospitalization due to her poor intake of oral medications we switched to IV Lopressor 5 mg to maintain her blood pressure. She is stable while at the discharge
and switch to oral medication including ceftriaxone thousand mg into Keflex oral suspension to complete the course for 4 more days. Recommended to follow-up with PCP in a few weeks of discharge.
IMPORTANT:
If your symptoms worsen when you get home, go to the Emergency Room if you cannot reach a doctor, or call 911
code status--Full code
DVT proph-- heparin SC
Important imaging findings :
#On 03/09/2025 CT brain without IV contrast:
No acute intracranial abnormalities.
Findings compatible with diffuse cortical atrophy with nonspecific white matter changes as described above. Please note, prominence of the ventricles are questionably somewhat out of proportion to the cisterns and sulci, cannot exclude a
superimposed component of NPH.
# On 03/09 chest x-ray impression:
No gross acute cardiopulmonary process.
# On 03/09 abdominal ultrasound impression:
Gallbladder not visualized most likely, either markedly contracted or surgically absent. No findings to suggest biliary tract dilatation.
Simple left renal cyst. Additional small complex left renal cysts with at least some internal septations, indeterminate. Suggest elective Abdomen CT without and with intravenous contrast for more complete evaluation.
Procedure findings : None
Discharge Plan
-
Patient Disposition: Home (Routine Discharge)
Discharge Diagnosis/Procedures: Sepsis with encephalopathy due to E. coli UTI
Alzheimer's dementia
SHASHANK likely prerenal from dehydration
Transaminitis
Persistent A-fib
Condition: Fair
Diet: No restrictions and As tolerated
Activity: No restrictions
Driving Restrictions: As prior to admission
Bathing Restrictions: None
Other Services: PT, OT and ST
Specialty Instructions: Weigh Daily- Call MD for wt gain/loss 3 lbs overnight/5 lbs in 1 week
Instructions: Altered Mental Status (DC), Caring for someone with Alzheimer disease or dementia, Dementia (DC), BLOOD PRESSURE
Referrals:
Emilee Arias DO [Family Provider, Internal Medicine]
Additional Discharge Medication Instructions: Follow-up with PCP within a week of discharge.
Will call with pending urine test results.
Prescriptions:
New
cephalexin 250 mg/5 mL suspension for reconstitution
500 mg PO BID MDD 20 mL Qty: 100 0RF
Continued
risperidone 0.25 mg Tablet
0.25 mg PO BID
amlodipine 10 mg Tablet
10 mg PO DAILY
metoprolol succinate 25 mg Tablet Extended Release 24 Hr
25 mg PO DAILY
losartan 100 mg Tablet
100 mg PO DAILY
Discharge Orders:
Discharge Patient (As Directed); Ordered 03/11/25
Ordered By: Magda Reddy
Discharge Date and Time
Discharge Date/Time: 03/11/25 16:38
Print Language: SINHALA
== END 2025-03-11 16:38 | disposition home health service (06) | DRG 871 ==
LOC: 4 WEST ACU 18:28
PROVIDERS: Student in an Organized Health Care Education/Training Program; ADMITTING PHYSICIAN Hospitalist; ATTENDING PHYSICIAN Internal Medicine; EMERGENCY PHYSICIAN Emergency Medicine; FAMILY PHYSICIAN Internal Medicine
DX: A41.51 Sepsis due to Escherichia coli [E. coli] (principal); G93.41 Metabolic encephalopathy; N39.0 Urinary tract infection, site not specified; N17.9 Acute kidney failure, unspecified; I48.19 Other persistent atrial fibrillation; E87.1 Hypo-osmolality and hyponatremia; G30.9 Alzheimer's disease, unspecified; F02.80 Dementia in other diseases classified elsewhere, unspecified severity, without behavioral disturbance, psychotic disturbance, mood disturbance, and anxiety; B96.20 Unspecified Escherichia coli [E. coli] as the cause of diseases classified elsewhere; E86.0 Dehydration; N28.1 Cyst of kidney, acquired; I10 Essential (primary) hypertension; E87.6 Hypokalemia; Z11.52 Encounter for screening for COVID-19; R65.20 Severe sepsis without septic shock
CPT/HCPCS: 70450; 71045; 76700; 80053; 81003; 81015; 83605; 83880; 85025; 85027; 87040; 87077; 87086; 87186; 87502; 87811; 90662; 92610; 93005; 96361; 96374; 99285; G0008